=== PATIENT | male | born 1950 | race Caucasian/White ===

== ENCOUNTER → 2018-03-11 | Outpatient (CLI) | payer MEDICARE, OTHER ==
--- NOTE | 2018-03-11 11:55 | RADIOLOGY REPORT (SQ) ---
EXAM DESCRIPTION: U/S ABDOMEN LIMITED W/O DOP COMPLETED DATE/TIME: 03/11/2018 10:12 am REASON FOR STUDY: RUQ PAIN (R10.11) I10 ESSENTIAL (PRIMARY) HYPERTENSION R10.11 RIGHT UPPER QUADRA NT PAIN COMPARISON: CT angio chest 04/05/2015 CT abdomen pelvis 09/09/2013 TECHNIQUE: Dynamic and static grayscale images acquired of the abdomen and recorded on PACS. Additio nal selected color Doppler and spectral images recorded. LIMITATIONS: Very limited study due to patient large body habitus and midline bowel gas FINDINGS: PANCREAS: Not visualized LIVER: Very difficult to visualize the liver parenchyma. Difficult to penetrate with the ultrasound energy from fatty infiltration. Grossly normal size. LIVER VASCULATURE: Not visualized well enough to determine directional flow GALLBLADDER: No stones. Normal wall thickness. No pericholecystic fluid. ULTRASOUND-DETECTED GARCIA'S SIGN: Negative. INTRAHEPATIC DUCTS AND COMMON DUCT: Not well seen INFERIOR VENA CAVA: Not visualized due to limited acoustic window AORTA: Not visualized due to limited acoustic window RIGHT KIDNEY: Normal size. No hydronephrosis PERITONEAL AND RIGHT PLEURAL SPACE: No ascites or effusions. OTHER: No other significant findings. IMPRESSION: No gallstones. Very limited study. TECHNICAL DOCUMENTATION: JOB ID: [id number] [employer]- All Rights Reserved Reading location - IP/workstation name: [facility]
--- NOTE | 2018-03-11 16:36 | XCELERA REPORT ---
[address] [address] Transthoracic Echocardiogram Report Name: ISAURA WHITE Age: 67 yrs Gender: Male : 1950 Patient Status: Outpatient Patient Location: Study Date: 03/11/2018 09:03 AM Height: 70 in Weight: 300 lb BSA: 2.5 m2 Reason For Study: HYPERTENSION Ordering Physician: MICHAEL RICHARDSON Performed By: Stefano Robles Interpretation Summary Poor apical 2 chamber and apical 4 chamber views, tesfaye biplane LVEVF measured. No signif. post peric. effusion. Mild AV sclerosis, no , mild AR and no LV enlargement. Mild mitral annular calcification, no MS, trace MR with mild LA enlargement, 46 mm by m-mode. Mild/mod conc. LVH (IVS/PW = 14/14 mm) (hypertensive heart disease) with normal LVEF and mild LV diastolic dysfunction. Incomplete LV segmental analysis, see pictorals, inferoseptal wall not well seen, rest of LV segments normal. RH appears normal RVSP upper normal, no RV or RA enlargement and no ASD suspected. IVC poorly visualised. MMode/2D Measurements & Calculations RVDd: 4.0 cm LVIDd: 5.6 cm FS: 39.2 % Ao root diam: 2.7 cm IVSd: 1.2 cm LVIDs: 3.4 cm EDV(Teich): 151.0 ml LVPWd: 1.3 cm ESV(Teich): 46.6 ml Ao root area: 5.6 cm2 LA dimension: 4.0 cm EF(Teich): 69.1 % Doppler Measurements & Calculations MV E max pilar: MV P1/2t max pilar: Ao V2 max: AI max pilar: 118.5 cm/sec 113.4 cm/sec 171.0 cm/sec 478.8 cm/sec MV A max pilar: MV P1/2t: 91.0 msec Ao max PG: AI max P.4 cm/sec MVA(P1/2t): 2.4 cm2 11.7 mmHg 91.7 mmHg MV E/A: 1.4 MV dec slope: AI dec slope: 174.2 cm/sec2 364.9 cm/sec2 AI P1/2t: MV dec time: 0.25 sec 804.9 msec LV V1 max PG: PA V2 max: TR max pilar: AV P1/2t-pr_phl: 7.4 mmHg 94.8 cm/sec 268.8 cm/sec 804.9 msec LV V1 max: PA max P.6 mmHg TR max P.7 cm/sec 28.9 mmHg LV dP/dt: 2272 mmHg/s MV P1/2t-pr_phl: 91.0 msec Left Ventricle The left ventricle is normal in size. There is mild to moderate concentric left ventricular hypertrophy. IVS/PW = 14/14 mm. The left ventricular ejection fraction is normal. Biplane LVEF not done. The E/E' ratio between the mitral E wave and the mitral annulus E' wave is abnormal, with a value of > 10. Not all wall segments were well visualized. There is no thrombus. Right Ventricle The right ventricle is normal in size, thickness and function. Atria The right atrium is normal in size. The left atrial size is normal. The interatrial septum is intact with no evidence for an atrial septal defect. Mitral Valve The mitral valve leaflets appear normal. There is no evidence of stenosis, fluttering, or prolapse. There is mild mitral annular calcification. There is no evidence of mitral valve prolapse. There is no mitral valve stenosis. There is a trace amount of mitral regurgitation. Aortic Valve The aortic valve opens well. The aortic valve is sclerotic and shows some degree of functional abnormality. There is no aortic valvular vegetation. There is no aortic valve stenosis. There is a trace to mild amount of aortic regurgitation. Tricuspid Valve The tricuspid valve is not well visualized secondary to technical limitations. Right ventricular systolic pressure is at the upper limits of normal. There is a trace to mild amount of tricuspid regurgitation. Pulmonic Valve The pulmonic valve is not well visualized. Great Vessels The aortic root is normal size. Effusions There is no pericardial effusion. I WMSI = 1.00 % Normal = 100 Segments Size X - Cannot 1 - Normal 2 - 3 - Akinetic4 - 1-2 small Interpret Hypokinetic Dyskinetic 3-5 moderate 5 - 6-14 large Aneurysmal 15-16 diffuse : MICHAEL RICHARDSON > Xavier Joyce
== END ==
LOC: SP 08:29
PROVIDERS: ATTEND Physician Assistant
DX: I10 Essential (primary) hypertension (principal); R10.11 Right upper quadrant pain
CPT/HCPCS: 76705; 93306

== ENCOUNTER → 2018-04-09 | Outpatient (CLI) | payer MEDICARE, OTHER ==
--- NOTE | 2018-04-09 10:16 | RADIOLOGY REPORT (SQ) ---
EXAM DESCRIPTION: CT ABD/PELVIS WITH IV ORAL COMPLETED DATE/TIME: 04/09/2018 9:00 am REASON FOR STUDY: RUQ PAIN (R10.11) I10 ESSENTIAL (PRIMARY) HYPERTENSION R10.11 RIGHT UPPER QUADRA NT PAIN COMPARISON: 03/11/2018 ultrasound TECHNIQUE: CT scan of the abdomen and pelvis performed using helical scanning technique with dynamic intravenous contrast injection. No oral contrast. Images reviewed with lung, soft tissue, and bone windows. Reconstructed coronal and sagittal MPR images reviewed. Delayed images for evaluation of the urinary system also acquired. All images stored on PACS. All CT scanners at this facility use dose modulation, iterative reconstruction, and/or weight based d osing when appropriate to reduce radiation dose to as low as reasonably achievable (ALARA). [facility]: Dose Right [facility]: CareDose [facility]: Dose Right [facility]: Teradose 4D [facility]: [employer] CONTRAST TYPE AND DOSE: contrast/concentration: Isovue 350.00 mg/ml; Total Contrast Delivered: 100.0 ml; Total Saline Delivered: 72.0 ml RENAL FUNCTION: Creatinine 0.8 RADIATION DOSE: CT Rad equipment meets quality standard of care and radiation dose reduction techniq ues were employed. CTDIvol: 25.4 - 30.1 mGy. DLP: 3345 mGy-cm.. LIMITATIONS: None. FINDINGS: LOWER CHEST: Scattered coronary atherosclerosis. LIVER: Normal size. No masses. No dilated ducts. SPLEEN: Splenomegaly measuring up to 17 cm in maximal span. No focal lesions. PANCREAS: No masses. No significant calcifications. No adjacent inflammation or peripancreatic fluid collections. Pancreatic duct not dilated. GALLBLADDER: Deep tendon small hyperdense foci within the gallbladder lumen most compatible with ston es. No evidence of gallbladder wall thickening or pericholecystic inflammation. ADRENAL GLANDS: No significant masses or asymmetry. RIGHT KIDNEY AND URETER: No solid masses. No significant calcifications. No hydronephrosis or hyd roureter. LEFT KIDNEY AND URETER: No solid masses. No significant calcifications. No hydronephrosis or hydr oureter. AORTA AND VESSELS: Aortoiliac atherosclerosis. No aneurysm. Patent celiac, SMA, bilateral renals an d KATHERIN. RETROPERITONEUM: No lymphadenopathy. No mass or hemorrhage. BOWEL AND PERITONEAL CAVITY: No evidence of intestinal obstruction or focal bowel wall thickening. S cattered colonic diverticula. APPENDIX: Normal. PELVIS: No mass. No free fluid. Normal bladder. ABDOMINAL WALL: Fact containing anterior abdominal wall hernia with a 11 mm aperture. The hernia michele sures approximately 4.8 x 4.9 cm. BONES: No acute bony abnormality. No suspicious osseous lesions. Lower lumbar spondylosis and facet arthropathy. OTHER: No other significant finding. IMPRESSION: Splenomegaly without focal lesion. Scattered enlarged portal caval nodes, largest measuring 14 mm in short axis, etiology uncertain. No additional evidence of acute intra-abdominal/pelvic process. TECHNICAL DOCUMENTATION: JOB ID: [id number] Quality ID # [id number]: Final reports with documentation of one or more dose reduction techniques (e.g., Au tomated exposure control, adjustment of the mA and/or kV according to patient size, use of iterative reconstruction technique) 2010 [employer]- All Rights Reserved Reading location - IP/workstation name: [email or web address]
== END ==
LOC: RAD 08:09
PROVIDERS: ATTEND Physician Assistant
DX: R10.11 Right upper quadrant pain (principal); R16.1 Splenomegaly, not elsewhere classified
CPT/HCPCS: 74177; 82565

== ENCOUNTER 2018-11-24 06:35 | Emergency (ER) | payer MEDICARE, OTHER ==
[2018-11-24 07:12] LABS: ABSOLUTE EOSINOPHILS # (AUTO) 0.2 10^3/uL (0.0-0.6); ABSOLUTE LYMPHOCYTES (AUTO) 0.9 10^3/uL (0.5-4.7); ABSOLUTE MONOCYTES (AUTO) 0.8 10^3/uL (0.1-1.4); ABSOLUTE NEUT (AUTO) 5.5 10^3/uL (1.7-8.2); BASOPHILS % (AUTO) 0.4 % (0-2); EOSINOPHILS % (AUTO) 2.3 % (0-6); HEMATOCRIT 38.9 % (37.9-51.0); LYMPHOCYTES % (AUTO) 12.3 % (13-45); MEAN CORPUSCULAR HEMOGLOBIN 28.2 pg (27.0-33.4); MEAN CORPUSCULAR HGB CONC 33.4 g/dL (32.0-36.0); MEAN CORPUSCULAR VOLUME 85 fl (80-97); MONOCYTES % (AUTO) 10.8 % (3-13); PLATELET COUNT 126 10^3/uL (150-450); RED BLOOD COUNT 4.61 10^6/uL (4.35-5.55); RED CELL DISTRIBUTION WIDTH 15.5 % (11.5-14.0); SEGMENTED NEUTROPHILS % (AUTO) 74.2 % (42-78); TOTAL CELLS COUNTED % (AUTO) 100 %; WHITE BLOOD COUNT 7.4 10^3/uL (4.0-10.5)
[2018-11-24 07:20] LABS: APPEARANCE,URINE CLEAR; BILIRUBIN,URINE NEGATIVE (NEGATIVE); COLOR,URINE YELLOW; GLUCOSE, URINE NEGATIVE (NEGATIVE); KETONES,URINE NEGATIVE (NEGATIVE); LEUKOCYTE ESTERASE,URINE NEGATIVE (NEGATIVE); NITRITE,URINE NEGATIVE (NEGATIVE); PROTEIN,URINE 30 mg/dL (NEGATIVE); URINE SPECIFIC GRAVITY 1.016
[2018-11-24 07:30] LABS: ALBUMIN 4.4 g/dL (3.5-5.0); ALKALINE PHOSPHATASE 135 U/L (38-126); ANION GAP 11 (5-19); ASPARTATE AMINO TRANSFERASE 26 U/L (17-59); BILIRUBIN,DIRECT 0.2 mg/dL (0.0-0.4); BILIRUBIN,TOTAL 3.1 mg/dL (0.2-1.3); BLOOD UREA NITROGEN 13 mg/dL (7-20); CALCIUM 9.4 mg/dL (8.4-10.2); CARBON DIOXIDE 28 mmol/L (22-30); CHLORIDE 102 mmol/L (98-107); CREATINE KINASE 61 U/L (55-170); GLUCOSE 135 mg/dL (75-110); POTASSIUM 4.2 mmol/L (3.6-5.0); TOTAL PROTEIN 7.4 g/dL (6.3-8.2)
[2018-11-24 07:51] LABS: NT PRO BNP 238 pg/mL (5-900)
[2018-11-24 07:53] LABS: TROPONIN I < 0.012 ng/mL
--- NOTE | 2018-11-24 08:00 | ER Document Report ---
Entered by LIZBETH SANDRA SCRIBE 11/24/18 0701 Acting as scribe for:YULISSA KELLY MD ED Respiratory Problem - General Chief Complaint: Shortness Of Breath Stated Complaint: SHORTNESS OF BREATH Time Seen by Provider: 11/24/18 06:51 Primary Care Provider: MICHAEL LAGUNAS PA-C [Primary Care Provider] - Follow up as needed Mode of Arrival: Ambulatory Information source: Patient Notes: Patient is a 68-year-old male that presents to the emergency department today with complaints of shortness of breath which began last night. Patient states that when he tried to lay down to sleep his shortness of breath became much worse stating he could only breathe if he sat straight up. Patient states he has not been taking Lasix for approximately 2 months because his provider "did not tell him to continue it". Patient had a similar episode in 2016, during that time he had stopped taking Lasix too. Patient denies a history of CHF or COPD. Patient denies chest pain. TRAVEL OUTSIDE OF THE [place] IN LAST 30 DAYS: No - Related Data Allergies/Adverse Reactions: clindamycin Allergy (Verified 11/24/18 10:57) metformin Adverse Reaction (Verified 11/24/18 10:57) Diarrhea Past Medical History - General Information source: Patient - Social History Smoking Status: Former Smoker - as a teenager Cigarette use (# per day): No Chew tobacco use (# tins/day): No Frequency of alcohol use: None Drug Abuse: None Lives with: Family Family History: Reviewed & Not Pertinent Patient has suicidal ideation: No Patient has homicidal ideation: No - Past Medical History Cardiac Medical History: Reports: Hx Hypercholesterolemia, Hx Hypertension Endocrine Medical History: Reports: Hx Diabetes Mellitus Type 2 Musculoskeletal Medical History: Reports Hx Arthritis - Immunizations Hx Diphtheria, Pertussis, Tetanus Vaccination: No Review of Systems - Review of Systems Constitutional: No symptoms reported EENT: No symptoms reported Cardiovascular: denies: Chest pain Respiratory: See HPI, Short of breath Gastrointestinal: See HPI, Abdomen distended - "hard as a rock" Genitourinary: No symptoms reported Male Genitourinary: No symptoms reported Musculoskeletal: No symptoms reported Skin: No symptoms reported Hematologic/Lymphatic: No symptoms reported Neurological/Psychological: No symptoms reported -: Yes All other systems reviewed and negative Physical Exam - Vital signs Vitals: Pulse 63 11/24/18 06:43 - Notes Notes: Physical Exam: General: Alert, appears short of breath. HEENT: Normocephalic. Atraumatic. PERRL. Extraocular movements intact. Oropharynx clear. Neck: Supple. Non-tender. Respiratory: Mild respiratory distress, tachypneic. Rales bilaterally. Cardiovascular: Regular rate and rhythm. Abdominal: Large and firm. No distension. Normal Bowel Sounds. Back: No gross abnormalities. Extremities: Moves all four extremities. Upper extremities: Normal inspection. Normal ROM. Lower extremities: Chronic skin changes, thickened skin, 2+ pitting edema real aterally. Normal ROM. Neurological: Normal cognition. AAOx4. Normal speech. Psychological: Normal affect. Normal Mood. Skin: Warm. Dry. Normal color. See lower extremity exam. Course - Re-evaluation Re-evalutation: 11/24/18 11:05 The patient has diuresed over a liter at this point. His breathing is much better. His oxygen saturation is 97% on room air at rest. The patient presently takes losartan 100 HCTZ 25 daily. We will add Lasix 20 mg daily for the next week. He is to follow-up with his primary care provider this coming week to discuss long-term management and possible echocardiogram if he has not had one in the past. - Vital Signs Vital signs: Temp Pulse Resp BP Pulse Ox 98.2 F 63 18 171/65 H 95 11/24/18 09:59 11/24/18 06:43 11/24/18 10:01 11/24/18 10:01 11/24/18 10:01 - Laboratory Result Diagrams: 11/24/18 06:45 11/24/18 06:45 Laboratory results interpreted by me: 11/24/18 11/24/18 11/24/18 06:45 06:45 06:45 Hgb 13.0 L RDW 15.5 H Plt Count 126 L Lymph % (Auto) 12.3 L D-Dimer Glucose 135 H Total Bilirubin 3.1 H Alkaline Phosphatase 135 H Urine Protein 30 H Urine Urobilinogen 4.0 H 11/24/18 06:45 Hgb RDW Plt Count Lymph % (Auto) D-Dimer 1.83 H Glucose Total Bilirubin Alkaline Phosphatase Urine Protein Urine Urobilinogen - Diagnostic Test Radiology reviewed: Image reviewed, Reports reviewed - Chest x-ray is unremarkab le. CTA chest shows subtle signs of fluid overload without pulmonary embolus or other acute abnormality. Critical Care Note - Critical Care Note Total time excluding time spent on procedures (mins): 35 Discharge - Discharge Clinical Impression: Shortness of breath, Pulmonary vascular congestion Fluid overload Qualifiers: Hypervolemia type: unspecified Qualified Code(s): E87.70 - Fluid overload, unspecified Condition: Stable Disposition: HOME, SELF-CARE Additional Instructions: Congestive Heart Failure You have been diagnosed as having congestive heart failure (CHF). CHF occurs when the heart is unable to pump blood efficiently, leading to fluid buildup in the veins and lungs. Typical symptoms are swelling of the legs, shortness of breath on minor exertion, and fatigue. CHF is treated with salt restriction, medicine to eliminate excess water and salt from the body, and medication to help the heart contract more efficiently. Eliminate added salt and salty foods in your diet. Decrease your activity until excess fluid has been eliminated. It will also be helpful to raise the head of your bed so you can sleep more easily. Keep a daily record of your weight. This will help your physician monitor your progress. Once extra water has been eliminated, light aerobic exercise daily -- such as walking -- will be helpful (unless your physician has told you to restrict activity for other reasons). Be sure to follow up with the physician as instructed. Contact the doctor at once if you worsen in any way. Continue your regular medications. Add the Lasix as prescribed, starting with your first dose tomorrow morning. Eat low-sodium foods, try to avoid excessive sodium in your diet. Follow-up with your primary care provider this week to review your weight, your progress with Lasix, and see if you may need to have an echocardiogram done. RETURN TO THE EMERGENCY ROOM IF ANY NEW OR WORSENING SYMPTOMS. Prescriptions: Furosemide [Lasix 20 mg Tablet] 20 mg PO QAM #10 tablet Referrals: MICHAEL LAGUNAS PA-C [Primary Care Provider] - Follow up in 3-5 days Scribe Attestation: 11/24/18 07:39 I personally performed the services described in the documentation, reviewed and edited the documentation which was dictated to the scribe in my presence, and it accurately records my words and actions. I personally performed the services described in the documentation, reviewed and edited the documentation which was dictated to the scribe in my presence, and it accurately records my words and actions.
--- NOTE | 2018-11-24 08:10 | EKG REPORT ---
SEVERITY:- ABNORMAL ECG - SINUS RHYTHM NONSPECIFIC INTRAVENTRICULAR CONDUCTION DELAY BORDERLINE R WAVE PROGRESSION, ANTERIOR LEADS : Confirmed by: Xavier Joyce MD 24-Nov-2018 08:09:46
--- NOTE | 2018-11-24 08:19 | RADIOLOGY REPORT (SQ) ---
EXAM DESCRIPTION: CHEST SINGLE VIEW COMPLETED DATE/TIME: 11/24/2018 6:57 am REASON FOR STUDY: sob COMPARISON: Chest films 04/05/2015 CT chest 04/05/2015 EXAM PARAMETERS: NUMBER OF VIEWS: One view. TECHNIQUE: Single frontal radiographic view of the chest acquired. RADIATION DOSE: NA LIMITATIONS: None. FINDINGS: LUNGS AND PLEURA: Chronic elevation right hemidiaphragm. No focal infiltrates. No pleural effusion or pneumothorax. MEDIASTINUM AND HILAR STRUCTURES: No masses. Contour normal. HEART AND VASCULAR STRUCTURES: Borderline cardiomegaly BONES: No acute findings. HARDWARE: None in the chest. OTHER: No other significant finding. IMPRESSION: No acute findings TECHNICAL DOCUMENTATION: JOB ID: [id number] [employer]- All Rights Reserved Reading location - IP/workstation name: [email or web address]
--- NOTE | 2018-11-24 08:34 | RADIOLOGY REPORT (SQ) ---
EXAM DESCRIPTION: CTA CHEST COMPLETED DATE/TIME: 11/24/2018 8:14 am REASON FOR STUDY: dyspnea, elevated dimer COMPARISON: Chest film 11/24/2018, 04/05/2015 CT chest 04/05/2015 TECHNIQUE: CT scan of the chest performed using helical scanning technique with dynamic intravenous contrast injection. Images reviewed with lung, soft tissue and bone windows. Reconstructed coronal and sagittal MPR images reviewed. Additional 3 dimensional post-processing performed to develop Maximal Intensity Projection images (HI P). All images stored on PACS. All CT scanners at this facility use dose modulation, iterative reconstruction, and/or weight based d osing when appropriate to reduce radiation dose to as low as reasonably achievable (ALARA). [facility]: Dose Right [facility]: CareDose [facility]: Dose Right [facility]: Teradose 4D [facility]: [employer] CONTRAST TYPE AND DOSE: contrast/concentration: Isovue 350.00 mg/ml; Total Contrast Delivered: 75.0 ml; Total Saline Delivered: 80.0 ml Contrast bolus optimized for the pulmonary arteries and thoracic aorta. RENAL FUNCTION: Creatinine 0.7 RADIATION DOSE: CT Rad equipment meets quality standard of care and radiation dose reduction techniq ues were employed. CTDIvol: 16.5 - 38.4 mGy. DLP: 1450 mGy-cm. . LIMITATIONS: None. FINDINGS: LUNGS AND PLEURA: Chronic elevation right hemidiaphragm. No dense consolidation worrisome for pneumonia. Minimal ground-glass opacity in both lungs likely in dicating mild fluid overload/pulmonary edema. Few Azalea lines at both lung bases. No pleural effus ion or pneumothorax. AORTA AND GREAT VESSELS: No aneurysm or thoracic aortic dissection. HEART: No pericardial effusion. Mild coronary artery calcifications. PULMONARY ARTERIES: No emboli visualized in the main pulmonary arteries or the segmental branches. HILAR AND MEDIASTINAL STRUCTURES: Mild adenopathy, 3 x 2.3 cm sub- carinal lymph node, 1.6 x 1 cm rig ht hilar lymph node, and 1.5 x 1 cm right paratracheal 4R lymph node. HARDWARE: None in the chest. UPPER ABDOMEN: No significant findings. Limited exam. THYROID AND OTHER SOFT TISSUES: No masses. No adenopathy. BONES: Diffuse thoracic spine ankylosis, question seronegative spondyloarthropathy or ankylosing spon dylitis. 3D MIPS: Confirm above findings. OTHER: No other significant finding. IMPRESSION: No CT angio evidence of acute pulmonary emboli or thoracic aortic dissection Subtle signs of fluid overload with ground-glass opacities in both lungs and few Azalea lines at the bases No pleural effusion. Mild nonspecific mediastinal adenopathy COMMENT: Quality ID # 436: Final reports with documentation of one or more dose reduction techniques (e.g., Automated exposure control, adjustment of the mA and/or kV according to patient size, use of iterative reconstruction technique) TECHNICAL DOCUMENTATION: JOB ID: [id number] [employer]- All Rights Reserved Reading location - IP/workstation name: [email or web address]
[2018-11-24] MEDS ORDERED: FUROSEMIDE INJ/PF 40 MG/4 ML SDV IV ONE (08:49)
[2018-11-24 11:53] VITALS: BP 163/69
== END 2018-11-24 12:00 | disposition home or self-care (01) ==
LOC: ER 06:35
DX: E87.70 Fluid overload, unspecified (principal); R06.02 Shortness of breath; E11.9 Type 2 diabetes mellitus without complications; I10 Essential (primary) hypertension; Z79.899 Other long term (current) drug therapy; Z87.891 Personal history of nicotine dependence; Z88.1 Allergy status to other antibiotic agents
CPT/HCPCS: 93005; 99291; 96374; 36415; 82550; 85025; 80053; 81001; 84484; 85379; 83880; 71045; 71275; 93010; J1940

== ENCOUNTER 2019-04-07 07:46 | Day surgery (SDC) | payer MEDICARE, OTHER ==
[2019-03-31 09:55] LABS: ABSOLUTE EOSINOPHILS # (AUTO) 0.1 10^3/uL (0.0-0.6); ABSOLUTE LYMPHOCYTES (AUTO) 0.8 10^3/uL (0.5-4.7); ABSOLUTE MONOCYTES (AUTO) 0.4 10^3/uL (0.1-1.4); ABSOLUTE NEUT (AUTO) 3.4 10^3/uL (1.7-8.2); BASOPHILS % (AUTO) 0.6 % (0-2); EOSINOPHILS % (AUTO) 2.2 % (0-6); HEMATOCRIT 41.1 % (37.9-51.0); LYMPHOCYTES % (AUTO) 17.2 % (13-45); MEAN CORPUSCULAR HEMOGLOBIN 28.5 pg (27.0-33.4); MEAN CORPUSCULAR HGB CONC 34.1 g/dL (32.0-36.0); MEAN CORPUSCULAR VOLUME 84 fl (80-97); MONOCYTES % (AUTO) 9.5 % (3-13); RED BLOOD COUNT 4.91 10^6/uL (4.35-5.55); RED CELL DISTRIBUTION WIDTH 15.6 % (11.5-14.0); SEGMENTED NEUTROPHILS % (AUTO) 70.5 % (42-78); TOTAL CELLS COUNTED % (AUTO) 100 %; WHITE BLOOD COUNT 4.8 10^3/uL (4.0-10.5)
[2019-03-31 10:10] LABS: ANION GAP 11 (5-19); BLOOD UREA NITROGEN 16 mg/dL (7-20); CALCIUM 9.4 mg/dL (8.4-10.2); CARBON DIOXIDE 28 mmol/L (22-30); CHLORIDE 100 mmol/L (98-107); GLUCOSE 237 mg/dL (75-110); POTASSIUM 4.6 mmol/L (3.6-5.0)
--- NOTE | 2019-03-31 10:14 | RADIOLOGY REPORT (SQ) ---
EXAM DESCRIPTION: CHEST PA/LATERAL COMPLETED DATE/TIME: 03/31/2019 9:48 am REASON FOR STUDY: PRE-OP COMPARISON: 11/24/2018 EXAM PARAMETERS: NUMBER OF VIEWS: two views TECHNIQUE: Digital Frontal and Lateral radiographic views of the chest acquired. RADIATION DOSE: NA LIMITATIONS: none FINDINGS: LUNGS AND PLEURA: No opacities, masses or pneumothorax. No pleural effusion. Stable eleva haresh right hemidiaphragm. MEDIASTINUM AND HILAR STRUCTURES: No masses or contour abnormalities. HEART AND VASCULAR STRUCTURES: Heart normal size. No evidence for failure. BONES: No acute findings. HARDWARE: None in the chest. OTHER: No other significant finding. IMPRESSION: No interval change in the chest. Elevated right hemidiaphragm. No acute findings. TECHNICAL DOCUMENTATION: JOB ID: [id number] [employer]- All Rights Reserved Reading location - IP/workstation name: [email or web address]
[2019-03-31 10:24] LABS: PLATELET COUNT 91 10^3/uL (150-450)
[2019-03-31 10:35] LABS: APPEARANCE,URINE CLEAR; BILIRUBIN,URINE NEGATIVE (NEGATIVE); COLOR,URINE YELLOW; GLUCOSE, URINE >=500 mg/dL (NEGATIVE); KETONES,URINE NEGATIVE (NEGATIVE); LEUKOCYTE ESTERASE,URINE NEGATIVE (NEGATIVE); NITRITE,URINE NEGATIVE (NEGATIVE); PROTEIN,URINE 100 mg/dL (NEGATIVE); URINE SPECIFIC GRAVITY 1.029
--- NOTE | 2019-03-31 20:46 | EKG REPORT ---
SEVERITY:- ABNORMAL ECG - SINUS RHYTHM INCOMPLETE RIGHT BUNDLE BRANCH BLOCK BORDERLINE R WAVE PROGRESSION, ANTERIOR LEADS : Confirmed by: Radha Alcala 31-Mar-2019 20:44:49
[~2019-04-07 07:46] MED LIST: CEFAZOLIN SODIUM 2 GM in DEXTROSE 5%-WATER 100 ML IV PRN; FENTANYL CITRATE INJ/PF 100 MCG/2 ML AMPUL ONE; LACTATED RINGERS 1000 ML IV PRN; LIDOCAINE 0.5% INJ-PF (5 MG/ML) 50 ML SDV SUBCUT PRN; MIDAZOLAM 2 MG/2 ML INJ ONE; ONDANSETRON HCL INJ/PF 4 MG/2 ML SDV ONE; PROPOFOL INJ 200 MG/20 ML VIAL IV ONE
[2019-04-07 08:30] LABS: PLATELET COUNT 105 10^3/uL (150-450)
[2019-04-07] MEDS ORDERED: BUPIVACAINE HCL 0.5 % INJ/PF 30 ML SDV ONE (08:33)
[2019-04-07] MEDS ORDERED: LIDOCAINE 1%/EPINEPHRINE INJ 20 ML VIAL ONE (08:33)
[2019-04-07 08:52] LABS: POTASSIUM 4.3 mmol/L (3.6-5.0)
[2019-04-07] MEDS ORDERED: MORPHINE SULFATE 10 MG/ML INJ IV PRN (10:37)
[2019-04-07] MEDS ORDERED: FENTANYL CITRATE INJ/PF 100 MCG/2 ML AMPUL IV PRN ×3 (10:37)
[2019-04-07] MEDS ORDERED: MEPERIDINE HCL/PF INJ 25 MG/1 ML DISP.SYRIN IV PRN (10:37)
[2019-04-07] MEDS ORDERED: ONDANSETRON HCL INJ/PF 4 MG/2 ML SDV IV PRN (10:37)
[2019-04-07] MEDS ORDERED: DIPHENHYDRAMINE HCL 50 MG/ML VIAL IV PRN (10:37)
[2019-04-07] MEDS ORDERED: PROMETHAZINE HCL INJ 25 MG/1 ML VIAL IV PRN ×2 (10:37)
--- NOTE | 2019-04-07 10:50 | Operative Report ---
Operative Report DATE OF SURGERY: 04/07/19 PREOPERATIVE DIAGNOSIS: Left medial meniscal tear POSTOPERATIVE DIAGNOSIS: Left medial meniscal tear. 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 Intact ACL. Grade III chondromalacia lateral compartment. Lateral meniscal tear. Patellofemoral arthrofibrosis. 15 degree knee flexion contracture OPERATION: Arthroscopic left partial medial and lateral meniscectomy SURGEON: HANNA B[place]INGH[place] ANESTHESIA: LMAC PROCEDURE: With the patient supine in the operating table the left lower extremities prepped and draped in sterile fashion. The knee is insufflated with combination of Marcaine, Xylocaine, and epinephrine. Subsequent medial lateral infrapatellar portals are created for the introduction of the arthroscope and debridements mentation. Joint exam systematic fashion findings as above. Using combination of mechanical shaver, basket rondure, electric frequency ablation probe a partial medial meniscectomy was performed from approximately 8:00 to 12:00 on the face of the dial. Similarly a partial lateral meniscectomy was performed from proximally 6:00 to 12:00 in the face of the dial. This point the joint is again examined in systematic fashion with no new findings. Instrumentation was removed. Portals reapproximated of the nylon. A sterile compressive dressing was applied. The patient is returned to the PACU in satisfactory condition.
--- NOTE | 2019-04-07 10:53 | Discharge Summary ---
Discharge Summary (SDC) - Discharge Final Diagnosis: Left medial meniscal tear Date of Surgery: 04/07/19 Discharge Date: 04/07/19 Condition: Good Treatment or Instructions: Activity as tolerated. Remove compressive wrap on Sunday. Underlying OpSite dressing can be left in place until you return to the office. You can shower once the compressive wrap is removed but please do not immerse it in a tub. Prescriptions: Oxycodone HCl/Acetaminophen [Percocet 5-325 mg Tablet] 1 tab PO Q6 PRN #25 tab PRN Reason: Referrals: MICHAEL LAGUNAS PA-C [Primary Care Provider] - Discharge Diet: Regular Respiratory Treatments at Home: Deep Breathing/Coughing Discharge Activity: Activity As Tolerated, No tub bath Home Care Assistance: None Needed Report the Following to Your Physician Immediately: Shortness of Breath, Fever over 101 Degrees, Drainage-Foul Smelling
[2019-04-07] MEDS ORDERED: OXYCODONE-ACETAMINOPHEN 5-325 MG TABLET PO PRN (11:37)
[2019-04-07] MEDS ORDERED: OXYCODONE-ACETAMINOPHEN 5-325 MG TABLET ONE (11:39)
[2019-04-07 12:50] VITALS: BP 140/57
== END 2019-04-07 12:40 | disposition home or self-care (01) ==
LOC: OROUT 07:46
PROVIDERS: ATTEND Orthopaedic Surgery
DX: M23.304 Other meniscus derangements, unspecified medial meniscus, left knee (principal); M23.301 Other meniscus derangements, unspecified lateral meniscus, left knee; M24.661 Ankylosis, right knee; M94.262 Chondromalacia, left knee; M24.562 Contracture, left knee; M25.562 Pain in left knee; Z79.899 Other long term (current) drug therapy; Z79.84 Long term (current) use of oral hypoglycemic drugs; Z79.4 Long term (current) use of insulin; Z79.51 Long term (current) use of inhaled steroids; D64.9 Anemia, unspecified; I35.8 Other nonrheumatic aortic valve disorders; I34.0 Nonrheumatic mitral (valve) insufficiency; I45.10 Unspecified right bundle-branch block; I07.1 Rheumatic tricuspid insufficiency; K76.0 Fatty (change of) liver, not elsewhere classified; N40.0 Benign prostatic hyperplasia without lower urinary tract symptoms; E78.00 Pure hypercholesterolemia, unspecified; E11.9 Type 2 diabetes mellitus without complications; I11.9 Hypertensive heart disease without heart failure; Z87.891 Personal history of nicotine dependence; E66.3 Overweight; J44.9 Chronic obstructive pulmonary disease, unspecified; I25.2 Old myocardial infarction
CPT/HCPCS: 93005; 36415 ×2; 82947; 84132; 85025; 85049; 80048; 81001; 71046; 93010; 29880; J2250; J3490 ×2; J0690; J3010; A9270; J2405; J7060; J2704